=== PATIENT | female | born 1990 | race Caucasian/White ===

== ENCOUNTER 2020-10-29 19:43 | Emergency (ER) | payer OTHER, SELFPAY ==
--- NOTE | ~2020-10-29 | XR_ITS ---
EXAMINATION: XR hand RT min 3V, XR wrist RT min 3V EXAM DATE: 10/29/2020 20:05 INDICATION: Punched wall, right 5th metacarpal pain. Initial encounter. Ulnar pain. TECHNIQUE: Right hand frontal, lateral and oblique projections obtained and reviewed. Right wrist fro ntal, frontal with ulnar deviation, oblique and lateral projections obtained and reviewed. There is no prior study for comparison. FINDINGS: There is acute closed posttraumatic fracture through the shaft of the right 5th metacarpal bone, with mild volar angulation. There is overlying soft tissue swelling. Right wrist scapholunate joint space is maintained. IMPRESSION: Right 5th metacarpal shaft fracture, mild volar angulation. Reviewed, dictated and finalized at location A. IMPRESSION: Right 5th metacarpal shaft fracture, mild volar angulation.
[2020-10-29 19:50] VITALS: BP 120/70; PULSE 76; RESP 18; TEMP 36.6; O2SAT 100
--- NOTE | 2020-10-29 20:14 | ED.GENADULT ---
HPI - General Adult General Chief complaint: Extremity Injury, Upper Stated complaint: right hand injury Time Seen by Provider: 10/29/20 19:49 Source: patient and RN notes reviewed Mode of arrival: ambulatory Limitations: no limitations History of Present Illness HPI narrative: Patient is a 30-year-old female who presents to emergency department for evaluation of right hand injury after punching a wall just prior to arrival patient does not wish for any pain medication. Patient denies other injuries or complaints Related Data Allergies Allergy/AdvReac Type Severity Reaction Status Date / Time No Known Allergies Allergy Verified 10/29/20 20:24 Review of Systems Review of Systems: All systems reviewed & are unremarkable except as noted in HPI and below PMFSH Social History Social History (Updated 10/29/20 @ 20:16 by Bipin Galan PA-C) Smoking status: Never smoker Exam Narrative: Exam Narrative: GENERAL: Well-appearing, well-nourished, and in no acute distress. HEAD: Normocephalic, atraumatic. EYES: PERRLA and EOMI. ENT: Nares clear, no rhinorrhea or epistaxis. Mucous membranes moist. CHEST: Clear to auscultation. No respiratory distress. No wheezes rales or rhonchi HEART: Regular rate and rhythm. No murmur heard. EXTREMITIES: Bruising swelling and tenderness over the SKIN: Warm, dry, no rash. NEURO: No focal deficits. Alert and oriented x3. Cranial nerves II through XII grossly intact PSYCH: Normal mood and affect. Course Course Emergency Course: Patient in the room in no distress aware of case findings treatment plan and discussion with hand surgeon will follow up accordingly Consultations Consultation #1: Discussed case with hand surgeon Jenna will follow patient in clinic Date: 10/29/20 Time: 20:19 Vital Signs Vital signs: Vital Signs Temperature 97.9 F 10/29/20 19:50 Pulse Rate 76 10/29/20 19:50 Respiratory Rate 18 10/29/20 19:50 Blood Pressure 120/70 10/29/20 19:50 Pulse Oximetry 100 10/29/20 19:50 Temperature 97.9 F 10/29/20 19:50 Pulse Rate 76 10/29/20 19:50 Respiratory Rate 18 10/29/20 19:50 Blood Pressure 120/70 10/29/20 19:50 Pulse Oximetry 100 10/29/20 19:50 Procedures Orthopedic Splinting/Casting Injury #1: Splinting/Casting Date: 10/29/20 Splinting/Casting Time: 20:21 Side: right Upper Extremity Injury Location: hand Splint: customized in ED OCL: ulnar gutter Pre-Procedure Neuro Vascular Exam: normal Post-Procedure Neuro Vascular Exam: normal Additional Comments: sling Medical Decision Making MDM Narrative Medical decision making narrative: Patients injury or pain is consistent with musculoskeletal etiology. No signs of neurological or vascular compromise on exam. Compartments and tisues are soft without signs of compartment syndrome. Pain is felt appropriate for further evaluation on an outpatient basis. Placed in ulnar gutter splint Vital Signs Vital Signs: Vital Signs Temperature 97.9 F 10/29/20 19:50 Pulse Rate 76 10/29/20 19:50 Respiratory Rate 18 10/29/20 19:50 Blood Pressure 120/70 10/29/20 19:50 Pulse Oximetry 100 10/29/20 19:50 Temperature 97.9 F 10/29/20 19:50 Pulse Rate 76 10/29/20 19:50 Respiratory Rate 18 10/29/20 19:50 Blood Pressure 120/70 10/29/20 19:50 Pulse Oximetry 100 10/29/20 19:50 Discharge Plan Discharge Clinical Impression: Closed fracture of right hand Patient Disposition: Home, Self-Care Condition: Stable Instructions: Antibiotic Form, Boxer Fracture (ED) Additional Instructions: Follow-up with hand surgeon by phone tomorrow to be seen in the next 5 to 7 days Rest ice and elevation of the hand for symptom relief Return if symptoms worsen or concerns Only take medications as directed Follow patient education sheet Prescriptions: New hydrocodone-acetaminophen 5-325 mg tablet 1 tablet PO Q8H
== END 2020-10-29 20:43 | disposition home or self-care (01) ==
PROVIDERS: Emergency Provider Emergency Medicine; PCP Family Medicine Adolescent Medicine
DX: S62.326A Displaced fracture of shaft of fifth metacarpal bone, right hand, initial encounter for closed fracture (principal); W22.09XA Striking against other stationary object, initial encounter
CPT/HCPCS: 29125; 73110; 73130; 99284

== ENCOUNTER → 2020-11-09 00:47 | Outpatient (CLI) | payer OTHER, SELFPAY ==
[2020-11-09 17:06] LABS: SARS-CoV-2 RNA PCR Negative
== END ==
PROVIDERS: PCP Family Medicine Adolescent Medicine; Visit Provider Plastic Surgery
DX: Z01.812 Encounter for preprocedural laboratory examination (principal); Z20.822 Contact with and (suspected) exposure to COVID-19
CPT/HCPCS: C9803; U0003; U0005

== ENCOUNTER 2020-11-12 01:54 | Day surgery (SDC) | payer OTHER, SELFPAY ==
[2020-11-05 12:55] VITALS: BMI 26.2
[2020-11-12] VITALS (8 sets, daily range): BP systolic 94–116; BP diastolic 62–72; PULSE 58–75; RESP 14–19; TEMP 36.3–36.6; O2SAT 96–100
--- NOTE | ~2020-11-12 | XR_ITS ---
EXAMINATION: XR surgery orthopedic DATE: 11/12/2020 12:52 INDICATION: Reduction and fixation of right fifth metacarpal fracture. TECHNIQUE: 4 fluoroscopic images of the right hand were obtained during procedure performed by Dr. Abrams. Radiologist was not present for the imaging or procedure. The amount of fluoroscopy time used du ring this procedure was 0.7 minutes. COMPARISON: 10/29/2020 FINDINGS: Interval reduction and percutaneous wire fixation extending from proximal to distal across an oblique fracture of the fifth metacarpal diaphysis. The wire is anchored at the base of the metacarpal. Alig nment appears near-anatomic. No other fractures identified. Joint spaces are normal. IMPRESSION: 1. Near-anatomic alignment post likely closed reduction and percutaneous wire fixation of a fifth met acarpal diaphyseal fracture. Reviewed, dictated and finalized at location A. IMPRESSION: 1. Near-anatomic alignment post likely closed reduction and percutaneous wire f ixation of a fifth metacarpal diaphyseal fracture.
--- NOTE | 2020-11-12 07:10 | WPDHPUPDATE1 ---
History and Physical Update Update Date/Time: 11/12/20 07:10 History and Physical has been reviewed, including an updated exam of the patient. There are NO changes in the patient's condition. Risks, benefits, and alternatives have been discussed and questions answered. Patient agrees to proceed with procedure.
[2020-11-12] MEDS: LACTATED RINGERS 1,000 ML 30 ML IV CONT (10:05)
--- NOTE | 2020-11-12 10:37 | P.PNAN_ITS ---
Anes - Initial Pre Proc Eval Procedure: Operation Date: 11/12/20 11:00 Proposed Procedures p Closed, Possible Open Reduction and Biomet Internal Device Fixation, Right Fifth Metacarpal Fracture - Lei West MD Date/Time: 11/12/20 10:37 Surgeon: Lei West MD Pre Op Diagnosis: right fifth metacarpal shaft fracture Patient Data Age: 30 Gender: F Height: 1.64 m Weight: 70.4 kg Allergies Allergy/AdvReac Type Severity Reaction Status Date / Time No Known Allergies Allergy Verified 11/05/20 11:27 Home Medications Medication Instructions Recorded Confirmed Type hydrocodone-acetaminophen 1 tablet PO Q8H PRN #14 tablet 10/29/20 11/12/20 Rx Daily Multivitamin 1 tab-cap PO DAILY 11/05/20 11/12/20 History Patient hx anesthesia problems: none Family hx anesthesia problems: none [facility] Past Medical History Medical History (Updated 11/12/20 @ 10:37 by Estevan Lee MD) Anxiety Surgical History Surgical History (Updated 11/12/20 @ 10:37 by Estevan Lee MD) History of appendectomy Social History Social History Smoking status: Never smoker Additional smoking assessment comments: 1 PACK PER WEEK FOR ~10 YEARS Last use: 2018 Spiritual care concerns: No Anes - Eval Final PreProcedure Day of Procedure 11/12/20 10:37 Patient weight: overweight Heart: regular rate and rhythm Lungs: clear to auscultation Airway: Mallampati scale class 1 Neurological: alert and oriented Last oral intake: >/= 8 hours ASA classification: II Emergent: no Anesthetic plan: proceed Anesthesia type and monitoring: general LMA and standard monitoring Informed Consent: The patient's anesthetic plan and its attendant risks and benefits were discussed with the patient/family/POA. Questions were solicited and answers provided to the satisfaction of the patient/family/POA.
[2020-11-12] MEDS: LIDO 1%/EPINEPHRINE 1:100,000 20 ML VIAL INFILTRATE (11:53)
[2020-11-12] MEDS: BUPIVACAINE/EPINEPHRINE 0.5% 30 ML VIAL 10 ML INFILTRATE (12:40)
[2020-11-12] MEDS: fentaNYL CITRATE INJ (*CRX) 100 MCG/2 ML VIAL 25 MCG IV PUSH ×8 (13:04→13:26)
--- NOTE | 2020-11-12 13:05 | P.OPB_ITS ---
Procedure Note - Brief Procedure Note - Brief Date of procedure: 11/12/20 Pre-op diagnosis: right fifth metacarpal shaft fracture Post-op diagnosis: same Procedure performed: closed reduction with intramedullary lila fixation right 5th metacarpal Implants: 1.6 mm Biomet fixation device Anesthesia: MAC Surgeon: Lei West MD Parks [employer] Recreation Worker: marjorie Estimated blood loss (mL): 1 Tourniquet time (min): 26 Drains: No Packing: No Pathology: none sent Complications: No immediate complications Condition: stable Disposition: PACU
--- NOTE | 2020-11-12 13:07 | W.PM.PROC2 ---
Procedure Note - Detailed Date of Procedure 11/12/20 Pre-op Diagnosis right fifth metacarpal shaft fracture Post-op Diagnosis same Procedure Performed closed reduction and Biomet intramedullary fixation devices right 5th metacarpal Surgeon Lei West MD Environmental Compliance Officer marjorie Anesthesia general Description of Procedure the site was marked on the patient in the holding area. She was taken to the operating room and placed supine on the operating table. Time-out was held and confirmed. She was given IV sedation and the extremity was prepped and draped in usual fashion. The access point was identified with C-arm. 1% lidocaine with epinephrine was infiltrated locally. Some the tourniquet was inflated to 250 mmHg. Small transverse incision was made for access to the base of the metacarpal. The Biomet introducer was placed there and the pin advanced. Under fluoroscopy the reduction and placement of the pin were observed. The pin was cut, bent and the sheath and cap applied. The small wound was closed with interrupted 5 0 nylon. 5 milliliter of 0.5% Marcaine plain were infiltrated. A small soft bandage was applied and the patient was discharged from the operating stable condition. No Implants Biomet 1.6 mm intramedullary fixation device Estimated Blood Loss 1 Tourniquet Time 26 Drains No Packing No Pathology none sent Complications No immediate complications Condition stable Disposition PACU
== END 2020-11-12 14:40 | disposition home or self-care (01) ==
PROVIDERS: PCP Family Medicine Adolescent Medicine; Visit Provider Plastic Surgery
PROC: (CPT 26608; principal; 2020-11-12 11:00)
DX: S62.326A Displaced fracture of shaft of fifth metacarpal bone, right hand, initial encounter for closed fracture (principal); W22.8XXA Striking against or struck by other objects, initial encounter; F41.9 Anxiety disorder, unspecified
CPT/HCPCS: 26608; A9270; C1713; C9803; J1100; J2250; J2405; J2704; J3010; J7120; U0003; U0005

== ENCOUNTER → 2021-01-02 08:00 | Outpatient (CLI) | payer OTHER, SELFPAY ==
[2021-01-02 18:04] LABS: SARS-CoV-2 RNA PCR Negative
== END ==
PROVIDERS: PCP Family Medicine Adolescent Medicine; Visit Provider Plastic Surgery
DX: Z01.812 Encounter for preprocedural laboratory examination (principal); Z20.822 Contact with and (suspected) exposure to COVID-19
CPT/HCPCS: C9803; U0003; U0005

== ENCOUNTER 2021-01-06 01:47 | Day surgery (SDC) | payer OTHER, SELFPAY ==
[2020-12-31 15:01] VITALS: BMI 25.8
--- NOTE | 2021-01-06 06:57 | WPDHPUPDATE1 ---
History and Physical Update Update Date/Time: 01/06/21 06:57 History and Physical has been reviewed, including an updated exam of the patient. There are NO changes in the patient's condition. Risks, benefits, and alternatives have been discussed and questions answered. Patient agrees to proceed with procedure.
[2021-01-06] MEDS: LACTATED RINGERS 1,000 ML 30 ML IV CONT (07:30)
[2021-01-06 07:40] VITALS: BP 111/54; PULSE 81; TEMP 37.2; O2SAT 99
--- NOTE | 2021-01-06 07:55 | WPDANESEPPF ---
Anes - Initial Pre Proc Eval Procedure: Operation Date: 01/06/21 08:15 Proposed Procedures p Removal Biomet Fixation Device, Right Fifth Metacarpal - Lei West MD Date/Time: 01/06/21 07:56 Surgeon: Lei West MD Pre Op Diagnosis: right fifth metacarpal fracture Patient Data Age: 30 Gender: F Height: 1.65 m Weight: 76.7 kg Last Vital Signs Temp 37.2 C 01/06/21 07:40 Pulse 81 01/06/21 07:40 BP 111/54 L 01/06/21 07:40 Pulse Ox 99 01/06/21 07:40 Allergies Allergy/AdvReac Type Severity Reaction Status Date / Time No Known Allergies Allergy Verified 01/06/21 07:39 Home Medications Medication Instructions Recorded Confirmed Type Daily Multivitamin 1 tab-cap PO DAILY 11/05/20 01/06/21 History Patient hx anesthesia problems: none Family hx anesthesia problems: none Results Review: All pre-operative results and documents have been reviewed as part of the pre-operative evaluation. [facility] Past Medical History Medical History Anxiety Surgical History Surgical History History of appendectomy Social History Social History Smoking status: Never smoker Additional smoking assessment comments: 1 PACK PER WEEK FOR ~10 YEARS Alcohol intake: current Drinks per week: 1 Last use: 2018 Living arrangements: with family Spiritual care concerns: No Anes - Eval Final PreProcedure Day of Procedure 01/06/21 07:56 Patient weight: overweight Heart: regular rate and rhythm Lungs: clear to auscultation Airway: Mallampati scale class II Neurological: alert and oriented Last oral intake: >/= 8 hours ASA classification: II Emergent: no Anesthetic plan: proceed Anesthesia type and monitoring: general GIVS and standard monitoring Results Review: All pre-operative results and documents have been reviewed as part of the pre-operative evaluation. Informed Consent: The patient's anesthetic plan and its attendant risks and benefits were discussed with the patient/family/POA. Questions were solicited and answers provided to the satisfaction of the patient/family/POA.
[2021-01-06] MEDS: LIDO 1%/EPINEPHRINE 1:100,000 50 ML VIAL INFILTRATE (08:42)
[2021-01-06 08:52] VITALS: BP 82/46; PULSE 73; RESP 10; O2SAT 97
--- NOTE | 2021-01-06 08:54 | W.PM.PROC2 ---
Procedure Note - Detailed Date of Procedure 01/06/21 Pre-op Diagnosis right fifth metacarpal fracture Post-op Diagnosis same Procedure Performed Planned removal of Biomet internal fixation device, right 5th metacarpal. Surgeon Lei West MD Anesthesia MAC Description of Procedure The site was marked on patient's right hand over the 5th metacarpal base. She was then taken to the operating room and placed supine on the operating table. A time-out was held and confirmed she was given IV sedation. The the extremity was prepped and draped in usual fashion. The site was reconfirmed and locally infiltrated with 1% lidocaine with epinephrine. The tourniquet was inflated to 250 mmHg. The pin site was easily identified and a small longitudinal incision was made over that. It was identified through that that the cap had come off the pin. The pin had not caused a trauma to the subcutaneous tissue. The sleeve was removed cap was removed and the pin was grasped with a heavy needle cade and retracted proximally without difficulty. The skin wound was closed with intradermal interrupted 5 0 Vicryl suture small bandage with Coban wrap was applied. She is discharge instructions in wound care and follow-up. She can return to full-time regular work. A prescription was sent to her pharmacy for hydrocodone 5/325 number 4
[2021-01-06] MEDS: ONDANSETRON INJ 4 MG/2 ML VIAL IV PUSH (09:24)
[2021-01-06 09:25] VITALS: BP 88/55; PULSE 93
[2021-01-06 09:48] VITALS: BP 93/60; PULSE 63; RESP 16
== END 2021-01-06 09:54 | disposition home or self-care (01) ==
PROVIDERS: PCP Family Medicine Adolescent Medicine; Visit Provider Plastic Surgery
PROC: (CPT 20694; principal; 2021-01-06 08:15)
DX: Z47.2 Encounter for removal of internal fixation device (principal); S62.326D Displaced fracture of shaft of fifth metacarpal bone, right hand, subsequent encounter for fracture with routine healing; F17.210 Nicotine dependence, cigarettes, uncomplicated
CPT/HCPCS: 20680; C9803; J2250; J2405; J2704; J7120; U0003; U0005

== ENCOUNTER → 2021-02-12 14:54 | Outpatient (CLI) | payer OTHER, SELFPAY ==
--- NOTE | ~2021-02-12 | US_ITS ---
EXAMINATION: US transvaginal DATE: 02/12/2021 15:12 INDICATION: Displacement of an intrauterine contraceptive device strings TECHNIQUE: Multiple endovaginal sonographic images of the pelvis were obtained. COMPARISON: None. FINDINGS: The uterus measures 9.2 x 3.8 x 5.4 cm. The endometrial complex measures 5 mm in thickness. Linear e chogenic and shadowing IUD in expected position within the endometrial canal. The right ovary measure s 2.4 x 1.8 x 1.8 cm. With vascular flow on color Doppler The left ovary is not visualized. There is no free fluid in the pelvis. IMPRESSION: 1. Normal pelvic ultrasound with IUD in expected position within the endometrial canal. Reviewed, dictated and finalized at location A. IMPRESSION: 1. Normal pelvic ultrasound with IUD in expected position within the endometria l canal.
== END ==
PROVIDERS: Visit Provider Nurse Practitioner
DX: Z30.431 Encounter for routine checking of intrauterine contraceptive device (principal)
CPT/HCPCS: 76830

== ENCOUNTER 2022-02-13 19:13 | Emergency (ER) | payer OTHER, SELFPAY ==
--- NOTE | 2022-02-13 19:22 | ED.FEMALEGU ---
HPI - Female Genitourinary General Chief complaint: Urogenital-Female Stated complaint: uti Time Seen by Provider: 02/13/22 19:33 Source: patient and RN notes reviewed Mode of arrival: ambulatory Limitations: no limitations History of Present Illness HPI Narrative: 31-year-old female presents concern for urinary tract infection. She reports symptoms started a week and a half ago, worsened yesterday. She reports dysuria, frequency, urgency, low back pain, suprapubic pressure, general malaise. She denies vomiting. She reports she took Pyridium last night and again today. MD elicited complaint: UTI Related Data Allergies Allergy/AdvReac Type Severity Reaction Status Date / Time No Known Allergies Allergy Verified 02/13/22 19:34 Review of Systems Review of Systems: CONSTITUTIONAL: Reports malaise. Denies chills, sweats, or fever. CARDIOVASCULAR: Denies chest pain, palpitations, or edema. RESPIRATORY: Denies cough or dyspnea. GASTROINTESTINAL: Denies abdominal pain, nausea, vomiting, diarrhea GENITOURINARY: Reports dysuria, frequency, urgency, suprapubic pressure. Denies flank pain or hematuria. SKIN: Denies rash or itching. MUSCULOSKELETAL: Reports bilateral low back pain, myalgia. All systems reviewed & are unremarkable except as noted in HPI and below PMFSH Past Medical History Medical History Anxiety Surgical History Surgical History History of appendectomy Social History Social History Smoking status: Never smoker Additional smoking assessment comments: 1 PACK PER WEEK FOR ~10 YEARS Alcohol intake: current Drinks per week: 1 Last use: 2018 Spiritual care concerns: No Comments At time of signature, agree with nursing past medical, surgical, social and family history. There is no relevant family history pertinent to the presenting complaint Exam Narrative: GENERAL: Well-appearing, well-nourished, and in no acute distress. HEAD: Normocephalic. EYES: PERRLA, conjunctivae clear. NECK: Supple. No lymphadenopathy CHEST: Clear to auscultation. No respiratory distress. HEART: Regular rate and rhythm. ABDOMEN: Soft, nontender upon palpation, nondistended, normal active bowel sounds, no palpable or pulsatile masses, no guarding. Bilateral CVA tenderness, suprapubic tenderness SKIN: Warm, dry, no rash. NEURO: Alert and oriented x3. PSYCH: Normal mood and affect Course Course Emergency Course: Patient is aware of diagnosis, understands and agrees to treatment plan. Anticipatory guidance given. Patient agrees to follow-up as directed and is aware of reasons to seek care at the emergency department. Portions of this record may have been created with voice recognition software Level of Care: Express Care Visit Vital Signs Vital signs: Reviewed. MDM - Female Genitourinary MDM Narrative Medical decision making narrative: Exam findings and UA show no acute concerns or changes; patient is non-toxic appearing and is in no distress. Patient is appropriate for outpatient treatment and follow-up. Differential Diagnosis Differential diagnosis: Likely urinary tract infection and cystitis Critical Care Time Critical Care Time Critical Care Time: No Discharge Plan Discharge Clinical Impression: Urinary tract infection Patient Disposition: Home, Self-Care Condition: Stable Instructions: Antibiotic Form, Urinary Tract Infection in Women (ED) Additional Instructions: We will send a urine culture to the lab; if the culture identifies an organism that the prescribed antibiotic will not treat, you will receive a phone call from an urgent care staff member and an appropriate antibiotic will be prescribed. -Your symptoms should begin to improve within a day of starting antibiotics. But you should finish all the antibiotic p
[2022-02-13 19:25] VITALS: BP 117/58; PULSE 89; RESP 16; TEMP 36.4; O2SAT 99
== END 2022-02-13 19:50 | disposition home or self-care (01) ==
PROVIDERS: Emergency Provider Nurse Practitioner
DX: N39.0 Urinary tract infection, site not specified (principal)
CPT/HCPCS: 81003; 87077; 87086; 87088; 99213; G0463

== ENCOUNTER 2022-03-27 15:29 | Emergency (ER) | payer OTHER, SELFPAY ==
[2022-03-27] VITALS (7 sets, daily range): BP systolic 106–114; BP diastolic 61–73; PULSE 108; RESP 18; TEMP 37.5; O2SAT 95–98
--- NOTE | ~2022-03-27 | XR_ITS ---
EXAMINATION: XR chest 2V DATE: 03/27/2022 18:43 INDICATION: Fever, cough and congestion TECHNIQUE: PA and lateral views of the chest were obtained. COMPARISON: Chest radiograph dated 11/30/2014 FINDINGS: Focal airspace opacity posterior medial left lower lobe projecting over the infrahilar region on the frontal projection and posterior to the thoracic spine on the lateral projection. No other airspace o pacities, pulmonary edema, pleural effusion or pneumothorax. The cardiomediastinal silhouette is norm al. Mild to moderate midthoracic spondylosis. IMPRESSION: 1. Focal airspace opacity at the posterior medial left lower lobe concerning for pneumonia. Reviewed, dictated and finalized at location A. [employer] DEVELOPER IMPRESSION: 1. Focal airspace opacity at the posterior medial left lower lobe concerning fo r pneumonia.
[2022-03-27 16:52] LABS: Influenza A QL RT-PCR Negative (Negative); Influenza B QL RT-PCR Negative (Negative); SARS-CoV-2 RNA PCR Negative
--- NOTE | 2022-03-27 18:40 | ED.FEVER ---
HPI - Fever General Chief Complaint: Fever Stated Complaint: fever Time Seen by Provider: 03/27/22 18:40 Source: patient and family Mode of arrival: ambulatory Limitations: no limitations History of Present Illness HPI Narrative: 31 years old white female presents with fever, chills, diarrhea, chest pain, sore throat started 6 days ago basically patient works as a police and fire dispatcher, and half of the office are. Also her son is also sick as well with similar symptoms. Currently complaining of severe body aches and coughing. Been on TheraFlu and [place] without improvement. Patient did not take Tylenol or ibuprofen at home. She is healthy otherwise,. Related Data Allergies Allergy/AdvReac Type Severity Reaction Status Date / Time No Known Allergies Allergy Verified 02/13/22 19:34 Review of Systems Review of Systems: All systems reviewed & are unremarkable except as noted in HPI and below PMFSH Past Medical History Medical History Anxiety Surgical History Surgical History History of appendectomy Social History Social History Smoking status: Never smoker Additional smoking assessment comments: 1 PACK PER WEEK FOR ~10 YEARS Alcohol intake: current Drinks per week: 1 Last use: 2018 Spiritual care concerns: No Exam Narrative: General appearance: Well-developed, well-nourished Skin: Normal color Head: Normocephalic, nontraumatic Eyes: Clear conjunctiva ENT: Oropharyngeal erythema l, ears normal, nose normal Neck: Supple, nontender Chest and respiratory: Airway patent, no respiratory distress, no accessory muscle use few scattered rhonchi Heart: Regular rate/rhythm Abdomen: Soft, nontender, no organomegaly, quiet bowel sounds Vascular: Normal peripheral pulses, normal capillary refill. Musculoskeletal: Normal range of motion, nontender back Neurologic: Alert and oriented ?3, DIE SINKER is normal as tested, no gross motor deficit Course Reevaluation(s) Reevaluation #1: I believe patient had upper respiratory viral infection and strep throat 6 days ago, chest x-ray showed pneumonia which could be secondary bacterial infection or possible viral pneumonitis. Patient received 1,200,000 units of penicillin G IM for strep throat and discharged on Z-Oneil for possible pneumonia. Date: 03/27/22 Time: 21:10 Vital Signs Vital signs: Vital Signs Temperature 37.5 C 03/27/22 15:59 Pulse Rate 108 H 03/27/22 15:59 Respiratory Rate 18 03/27/22 15:59 Blood Pressure 106/61 03/27/22 15:59 Pulse Oximetry 96 03/27/22 15:59 Temperature 37.5 C 03/27/22 15:59 Pulse Rate 108 H 03/27/22 15:59 Respiratory Rate 18 03/27/22 15:59 Blood Pressure 114/73 03/27/22 19:05 Pulse Oximetry 98 03/27/22 19:05 MDM - Fever Differential Diagnosis Differential diagnosis: Likely fever of unknown origin, community acquired pneumonia, viral infection and other (Strep throat) Lab Data 03/27/22 18:59 03/27/22 18:59 Labs: Lab Results 03/27/22 03/27/22 03/27/22 Range/Units 16:02 18:59 18:59 WBC 7.4 (4.5-10.0) K/mm3 RBC 4.59 (4.2-5.4) M/mm3 Hgb 15.0 (12.0-15.0) g/dL Hct 44.9 (37.0-47.0) % MCV 97.8 (80-100) fl MCH 32.7 (26-34) pg MCHC 33.4 (32-36) g/dl RDW 11.9 (11.5-14.5) % Plt Count 247 (150-375) k/mm3 MPV 10.7 H (7.4-10.4) fl Immature Gran % (Auto) 0.3 (0-0.5) % Neut % (Auto) 79.3 H (45.5-73.1) % Lymph % (Auto) 9.7 L (18.3-44.2) % [place] % (Auto) 9.7 H (2.6-8.5) % Eos %
[2022-03-27] MEDS: KETOROLAC 30 MG/ML VIAL (*BKC) IV PUSH (18:56)
[2022-03-27] MEDS: SODIUM CHLORIDE 0.9% IV 1,000 ML 999 ML IV CONT (18:56)
[2022-03-27 19:10] LABS: Basophils Percent Auto 0.5 % (0.2-1.2); Eosinophils Percent Auto 0.5 % (0-4.4); Hematocrit 44.9 % (37.0-47.0); Immature Granulocyte Absolute 0.02 K/mm3 (0.00-0.031); Immature Granulocyte Percent A 0.3 % (0-0.5); Lymphocytes Absolute Auto 0.72 K/mm3 (0.9-3.2); Lymphocytes Percent Auto 9.7 % (18.3-44.2); Mean Corpuscular HGB Conc 33.4 g/dl (32-36); Mean Corpuscular Hemoglobin 32.7 pg (26-34); Mean Corpuscular Volume 97.8 fl (80-100); Mean Platelet Volume 10.7 fl (7.4-10.4); Monocytes Absolute Auto 0.7 K/mm3 (0.1-0.6); Monocytes Percent Auto 9.7 % (2.6-8.5); Neutrophils Absolute Auto 5.9 K/mm3 (1.3-6.7); Neutrophils Percent Auto 79.3 % (45.5-73.1); Platelet Count Result 247 k/mm3 (150-375); Red Blood Count 4.59 M/mm3 (4.2-5.4); Red Cell Distribution Width 11.9 % (11.5-14.5); White Blood Count 7.4 K/mm3 (4.5-10.0)
[2022-03-27 19:25] LABS: Alanine Aminotransferase 20 U/L (6-35); Albumin Level 4.8 g/dL (3.5-5.1); Alkaline Phosphatase 76 U/L (38-126); Anion Gap 8 mmol/L (8-16); Aspartate Amino Transferase 30 U/L (14-36); Bilirubin,Total 0.4 mg/dL (0.2-1.3); Blood Urea Nitrogen 7 mg/dL (7-17); Calcium 9.1 mg/dL (8.4-10.2); Carbon Dioxide 29 mmol/L (22-30); Chloride 96 mmol/L (98-107); Estimated CRCL calculation 103 ml/min; Estimated Glomerular Filt Rate > 60; Glucose 113 mg/dL (65-110); Potassium 3.6 mmol/L (3.4-5.0); Sodium 133 mmol/L (137-145)
[2022-03-27 19:32] LABS: Strep Group A RT-PCR DETECTED (Negative)
--- NOTE | 2022-03-27 19:57 | PC.NURSE ---
NS infusion stopped by SINGH Arechiga at 1956, 03/27/2022.
[2022-03-27 20:32] LABS: Bacteria Urine Trace /hpf; Squamous Epithelial Cell Urine Few /hpf (Few)
[2022-03-27 20:33] LABS: Add Urine Microscopic? YES; Appearance Urine Clear (Clear); Bilirubin Urine Negative (Negative); Blood Urine Negative (Negative); Color Urine Light Yellow (Yellow); Glucose Urine UA Negative (Negative); Ketones Urine Negative (Negative); Leukocyte Esterase Ur 2+ LEU/UL (Negative); Nitrate Urine Negative (Negative); Protein Urine Negative (Negative); Specific Grav Ur <= 1.005 (1.001-1.035); Urobilinogen Urine 0.2 mg/dL (<2.0)
[2022-03-27] MEDS: PENICILLIN G BENZATHINE 1,200,000 UNITS/2 ML SYRINGE 1200000 UNITS IM (20:35)
--- NOTE | 2022-04-18 19:18 | PC.NURSE ---
LATE ENTRY This note is being entered to document information to the patient's record. The following information was omitted on [03/27/22], by [carter ]. NS ENDED 1952
== END 2022-03-27 21:54 | disposition home or self-care (01) ==
PROVIDERS: Emergency Provider Emergency Medicine
DX: J02.0 Streptococcal pharyngitis (principal); J18.9 Pneumonia, unspecified organism; Z20.822 Contact with and (suspected) exposure to COVID-19; F17.210 Nicotine dependence, cigarettes, uncomplicated
CPT/HCPCS: 36415; 71046; 80053; 81001; 85025; 87040; 87086; 87636; 87651; 96361; 96372; 96374; 99284; J0561; J1885; J7030

== ENCOUNTER 2022-03-28 02:14 | Emergency (ER) | payer OTHER, SELFPAY ==
[2022-03-28 02:15] VITALS: BP 111/77; PULSE 115; RESP 18; TEMP 39.1; O2SAT 97
== END 2022-03-28 02:15 | disposition left against medical advice (07) ==
DX: R50.9 Fever, unspecified (principal)
CPT/HCPCS: 99199

== ENCOUNTER 2022-06-01 08:07 | Emergency (ER) | payer OTHER, SELFPAY ==
[2022-06-01 08:17] VITALS: BP 109/58; PULSE 99; RESP 16; TEMP 37; O2SAT 98
--- NOTE | 2022-06-01 08:26 | ED.URI ---
HPI - URI/Sore Throat General Chief Complaint: Upper Respiratory Infection Stated Complaint: sore throat Time Seen by Provider: 06/01/22 08:26 History of Present Illness HPI Narrative: 31-year-old female presented for complaint of sore throat, body aches, nausea. Onset 2 days. Endorses subjective fever this morning. denies sick contacts. She denies shortness of breath, wheezing, vomiting, diarrhea. She has not taken anything for symptoms. States she was diagnosed with strep and pneumonia about 2 months ago. She completed her treatment and had felt better up until 2 days ago. Related Data Allergies Allergy/AdvReac Type Severity Reaction Status Date / Time No Known Allergies Allergy Verified 06/01/22 08:18 Review of Systems Review of Systems: per [facility] Past Medical History Medical History Anxiety Surgical History Surgical History History of appendectomy Social History Social History Smoking status: Never smoker Additional smoking assessment comments: 1 PACK PER WEEK FOR ~10 YEARS Alcohol intake: current Drinks per week: 1 Last use: 2018 Living arrangements: with family Spiritual care concerns: No Exam Narrative: GENERAL: Ill-appearing, no acute distress. EYES: conjunctivae clear ENT: Mucous membranes moist. TM pearly mata with normal light reflex bilaterally; no tragal tenderness. Oropharynx severely erythematous Tonsils enlarged with exudate. mildly hoarse voice. No drooling, no trismus, uvula midline. No tripod positioning, hot potato voice, or soft palate swelling. NECK: Supple. No lymphadenopathy CHEST: Clear to auscultation, breath sounds equal. No respiratory distress, speaks in full sentences. HEART: Regular rate and rhythm. No murmur heard. SKIN: Warm, dry, no rash. NEURO: Alert and oriented x3. Course Course Emergency Course: Patient is aware of diagnosis, understands and agrees to treatment plan. Anticipatory guidance given. Patient agrees to follow-up as directed and is aware of reasons to seek care at the emergency department. Portions of this record may have been created with voice recognition software Level of Care: Express Care Visit Vital Signs Vital signs: Vital Signs Temperature 98.6 F 06/01/22 08:17 Pulse Rate 99 06/01/22 08:17 Respiratory Rate 16 06/01/22 08:17 Blood Pressure 109/58 L 06/01/22 08:17 Pulse Oximetry 98 06/01/22 08:17 Oxygen Delivery Room Air 06/01/22 08:17 Temperature 98.6 F 06/01/22 08:17 Pulse Rate 99 06/01/22 08:17 Respiratory Rate 16 06/01/22 08:17 Blood Pressure 109/58 L 06/01/22 08:17 Pulse Oximetry 98 06/01/22 08:17 Oxygen Delivery Room Air 06/01/22 08:17 MDM - URI/Sore Throat MDM Narrative Medical decision making narrative: strep result reviewed with pt. Negative COVID and flu. Advise supportive treatments. Patient is appropriate for outpatient treatment and follow-up. Differential Diagnosis Differential diagnosis: Likely upper respiratory infection, viral infection and pharyngitis Discharge Plan Discharge Clinical Impression: Strep pharyngitis Patient Disposition: Home, Self-Care Condition: Stable Instructions: Antibiotic Form, Strep Throat (ED) Additional Instructions: - Take the antibiotic as directed. Fever and sore throat typically resolve within one to three days. Most patients can return to work, after 12 to 24 hours of antibiotic therapy, provided you are fever free and otherwise well. -Eat and drink things that are easy to swallow, like soft foods, cool liquids, tea with honey, or popsicles . -Salt water gargles and/or may use topical anesthetic ( Chloraseptic spray) or lozenges to relieve dryness or throat pain -Alternate Tylenol and ibuprofen as needed for pain and fever as dir
== END 2022-06-01 08:50 | disposition home or self-care (01) ==
PROVIDERS: Emergency Provider Nurse Practitioner Family
DX: J02.0 Streptococcal pharyngitis (principal); Z20.822 Contact with and (suspected) exposure to COVID-19
CPT/HCPCS: 87426; 87804; 87880; 99213; C9803; G0463